=== PATIENT | female | born 1955 | race Hispanic/Latino ===

== ENCOUNTER 2021-03-15 11:06 | Outpatient (CLI) | payer OTHER ==
--- NOTE | 2021-03-15 14:27 | XRay Report ---
LUMBAR SPINE 3 VIEWS BILATERAL HIPS AND PELVIS 3 VIEWS AP STANDING VIEWS OF BOTH KNEES LEFT ANKLE 3 VIEWS INDICATION: Back, hip, knee, and left ankle pain. COMPARISON: No relevant prior imaging study available. FINDINGS: Lumbar spine: Lumbar vertebral body height is maintained. Alignment is normal. There is mild discogen ic degenerative change throughout with relative sparing at L4-5. Diffuse facet arthropathy is noted. Hip/pelvis: Joint space narrowing is noted at the hips consistent with mild osteoarthrosis. There is also mild osteoarthrosis at the SI joints. No acute skeletal abnormality or femoral head osteonecrosi s. There is ossific density lateral to the right greater trochanter suggestive of insertion of glutea l calcific tendinitis. AP standing knees: There is advanced joint space narrowing at the medial tibiofemoral compartments bi laterally. No acute skeletal abnormality. Left ankle: No acute skeletal abnormality. Mild calcaneal enthesopathy. No significant soft tissue sw elling. IMPRESSION: 1. No acute findings. Signer Name: Barrett Melenderz MD Signed: 03/15/2021 2:23 PM Workstation Name: [id number]
== END 2021-03-15 11:07 | disposition home or self-care (01) ==
LOC: XRAY 11:06
PROVIDERS: ATTEND Internal Medicine
DX: M17.0 Bilateral primary osteoarthritis of knee (principal); M47.816 Spondylosis without myelopathy or radiculopathy, lumbar region; M47.898 Other spondylosis, sacral and sacrococcygeal region; M77.52 Other enthesopathy of left foot and ankle
CPT/HCPCS: 72100; 73521